=== PATIENT | male | born 1960 | race Hispanic/Latino ===

== ENCOUNTER → 2021-03-31 | Outpatient (CLI) | payer OTHER ==
[~2021-03-31] MED LIST: ASPI-1012 PO; HYDR-4457 PO; LISI1TAB32 PO; TAMS0.4C32 PO
[2021-03-31 11:49] LABS: INR 0.96 (0.85-1.15); PROTHROMBIN TIME 10.5 SEC (9.6-11.6)
[2021-03-31 12:10] LABS: APPEARANCE,URINE Clear (CLEAR); BILIRUBIN,URINE Negative (NEGATIVE); COLOR,URINE Yellow (YELLOW); GLUCOSE, URINE (UA) Negative (NEGATIVE); KETONES,URINE Negative (NEGATIVE); LEUKOCYTE ESTERASE ,URINE Negative (NEGATIVE); NITRATE,URINE Negative (NEGATIVE); OCCULT BLOOD,URINE Negative (NEGATIVE); PH,URINE 5.5 (5.0-8.0); PROTEIN,URINE Negative (NEGATIVE); UROBILINOGEN,URINE 0.2 mg/dL (0.2-1.0)
== END | disposition home or self-care (01) ==
LOC: DAH 10:00 → EDSTATUS 12:00
PROVIDERS: ATTEND Orthopaedic Surgery
DX: G89.29 Other chronic pain (principal); M17.12 Unilateral primary osteoarthritis, left knee; R26.89 Other abnormalities of gait and mobility; M23.8X2 Other internal derangements of left knee; M25.562 Pain in left knee; Z20.822 Contact with and (suspected) exposure to COVID-19; Z96.652 Presence of left artificial knee joint
CPT/HCPCS: 36415; 81003; 85610; 87088; 87635; 87641

== ENCOUNTER 2021-08-01 13:00 | Inpatient (IN) | payer OTHER ==
[~2021-08-01 13:00] MED LIST changes: -ASPI-1012 PO; -HYDR-4457 PO; -LISI1TAB32 PO
[2021-08-02 11:31] LABS: BASOPHILS % (AUTO) 0.5 % (0.0-5.0); LYMPHOCYTES % (AUTO) 24.4 % (21.0-51.0); MEAN CORPUSCULAR HEMOGLOBIN 30.7 pg (27.0-33.0); MEAN CORPUSCULAR HGB CONC 34.5 g/dL (32.0-36.0); MEAN CORPUSCULAR VOLUME 88.9 fL (79-99); MONOCYTES % (AUTO) 7.8 % (3.0-13.0); NEUTROPHILS % (AUTO) 63.7 % (40.0-77.0); PLATELET COUNT (AUTO) 256 K/uL (130-400); RED BLOOD CELL COUNT(AUTO) 5.51 MIL/uL (4.50-6.20); RED CELL DISTRIBUTION WIDTH 12.5 % (11.0-15.5); WHITE BLOOD COUNT (AUTO) 8.8 K/uL (4.8-10.8)
[2021-08-02 11:35] LABS: APPEARANCE,URINE Clear (CLEAR); BILIRUBIN,URINE Negative (NEGATIVE); COLOR,URINE Yellow (YELLOW); GLUCOSE, URINE (UA) Negative (NEGATIVE); KETONES,URINE Negative (NEGATIVE); LEUKOCYTE ESTERASE ,URINE Negative (NEGATIVE); NITRATE,URINE Negative (NEGATIVE); OCCULT BLOOD,URINE Negative (NEGATIVE); PROTEIN,URINE Negative (NEGATIVE); UROBILINOGEN,URINE 0.2 mg/dL (0.2-1.0)
[2021-08-02 11:44] LABS: POTASSIUM 3.5 mmol/L (3.5-5.1)
[2021-08-02 11:48] LABS: INR 1.02 (0.85-1.15); PROTHROMBIN TIME 11.1 SEC (9.6-11.6)
[2021-08-02 12:33] VITALS: BP 150/79
[2021-08-02] MEDS ORDERED: LISI10TA24 PO (14:46)
[2021-08-02] MEDS ORDERED: OXYB5TAB15 PO (14:46)
[2021-08-02] MEDS ORDERED: CHOL1CRY2 MC (14:46)
[2021-08-03] VITALS (24 sets, daily range): BP systolic 100–152; BP diastolic 42–88
[2021-08-03] MEDS ORDERED: CEFAZOLIN SODIUM 1 GM VIAL ONE ×2 (07:15→08:35)
[2021-08-03] MEDS ORDERED: LACTATED RINGERS 1000ML 1,000 ML IV ONE (07:15)
[2021-08-03] MEDS ORDERED: SUCCINYLCHOLINE CHLORIDE 20 MG/ML 10 ML VIAL ONE (08:04)
[2021-08-03] MEDS ORDERED: LIDOCAINE PF 100MG/5ML (2%) SYRINGE 5ML ONE (08:04)
[2021-08-03] MEDS ORDERED: SUCCINYLCHOLINE 200MG/10ML SYR ONE (08:04)
[2021-08-03] MEDS ORDERED: GLYCOPYRROLATE 1 MG/5 ML SYRINGE ONE (08:05)
[2021-08-03] MEDS ORDERED: NEOSTIGMINE 5MG/5ML SYR IV ONE (08:06)
[2021-08-03] MEDS ORDERED: MIDAZOLAM HCL 1 MG/ML 2ML VIAL ONE (08:06)
[2021-08-03] MEDS ORDERED: ROCURONIUM 10MG/1ML SYR 10 MG/ML ML ONE ×2 (08:06→10:13)
[2021-08-03] MEDS ORDERED: PROPOFOL 10 MG/ML 20ML VIAL IV ONE (08:06)
[2021-08-03] MEDS ORDERED: ROPIVACAINE 0.5% 5MG/ML 30ML IJ ONE (08:06)
[2021-08-03] MEDS ORDERED: FENTANYL CITRATE PF 50 MCG/1 ML 2ML VIAL ONE ×3 (08:20→10:41)
[2021-08-03] MEDS ORDERED: CEFAZOLIN SODIUM 2 GM VIAL IV ONE (08:20)
[2021-08-03] MEDS ORDERED: TRANEXAMIC ACID 1000MG/10ML ONE ×2 (08:35→11:42)
[2021-08-03] MEDS ORDERED: EPHEDRINE SULFATE 50 MG/ML AMPULE ONE (08:38)
[2021-08-03] MEDS ORDERED: ONDANSETRON 4MG INJ IVP PRN (10:30)
[2021-08-03] MEDS ORDERED: POTASSIUM CHLORIDE 20MEQ/100ML 100 ML IV PRN (10:30)
[2021-08-03] MEDS: 0.9%NACL 1000ML 1,000 ML IV SCH ×2 (10:30→22:38)
[2021-08-03] MEDS ORDERED: POTASSIUM CHLORIDE 10% ELIXIR 20 MEQ/15 ML UDCUP PO PRN (10:30)
[2021-08-03] MEDS ORDERED: TRAMADOL HCL 50 MG TABLET PO PRN (10:30)
[2021-08-03] MEDS ORDERED: TEMAZEPAM 15 MG CAPSULE PO PRN (10:30)
[2021-08-03] MEDS ORDERED: LIDOCAINE HCL-MPF 1% 2ML VIAL IV PRN (10:30)
[2021-08-03] MEDS ORDERED: FERROUS FUMARATE 324 MG TABLET PO PRN (10:30)
[2021-08-03] MEDS ORDERED: CALCIUM CARB 500MG PO PRN (10:30)
[2021-08-03] MEDS: ACETAMINOPHEN 500 MG TABLET PO SCH ×2 (10:30→18:16)
[2021-08-03] MEDS ORDERED: OXYCODONE HCL 5 MG TAB PO PRN (10:30)
[2021-08-03] MEDS ORDERED: DiphenhydrAMINE HCL 50 MG/ML VIAL IVP PRN (10:30)
[2021-08-03] MEDS ORDERED: MEPERIDINE-PF 25 MG/ML SYG ONE ×3 (10:57→11:50)
[2021-08-03] MEDS: KETOROLAC 15MG/ML VIAL (15MG/ML) IV PRN (13:31)
[2021-08-03] MEDS: OXYCODONE HCL 5 MG TAB PO PRN ×2 (15:58→20:30)
[2021-08-03] MEDS: CEFAZOLIN SODIUM 1 GM VIAL IVP SCH (15:58)
[2021-08-03] MEDS: PREGABALIN 25 MG CAP PO SCH (20:27)
[2021-08-03] MEDS: ASPIRIN 81 MG EC TAB PO SCH (20:27)
[2021-08-03] MEDS: FAMOTIDINE 20MG TAB PO SCH (20:27)
[2021-08-03] MEDS: CELECOXIB 200 MG CAP PO SCH (20:27)
[2021-08-03] MEDS ORDERED: KETOROLAC 30MG VIAL (30MG/ML) ONE (22:32)
[2021-08-04] VITALS: BP 134/69
[2021-08-04] MEDS: CEFAZOLIN SODIUM 1 GM VIAL IVP SCH (00:15)
[2021-08-04] MEDS: ACETAMINOPHEN 500 MG TABLET PO SCH ×3 (02:33→17:55)
[2021-08-04] MEDS: OXYCODONE HCL 5 MG TAB PO PRN ×3 (03:11→20:06)
[2021-08-04] MEDS: 0.9%NACL 1000ML 1,000 ML IV SCH (03:48)
[2021-08-04 03:55] VITALS: BP 121/66
[2021-08-04 05:49] LABS: HEMATOCRIT 39.4 % (42-54); MEAN CORPUSCULAR HEMOGLOBIN 30.6 pg (27.0-33.0); RED BLOOD CELL COUNT(AUTO) 4.38 MIL/uL (4.50-6.20); RED CELL DISTRIBUTION WIDTH 12.5 % (11.0-15.5); WHITE BLOOD COUNT (AUTO) 7.8 K/uL (4.8-10.8)
[2021-08-04] MEDS ORDERED: KETOROLAC 30MG VIAL (30MG/ML) ONE (05:49)
[2021-08-04 05:55] LABS: CREATININE 1.2 mg/dL (0.5-1.5); POTASSIUM 3.4 mmol/L (3.5-5.1)
[2021-08-04] MEDS: KCL 20 MEQ ERTAB PO PRN ×2 (06:25→12:40)
[2021-08-04 07:30] VITALS: BP 130/64
[2021-08-04] MEDS: **HM** VIT D3 25MCG PO SCH (09:00)
[2021-08-04] MEDS: TAMSULOSIN HCL 0.4 MG CAP.ER.24H PO SCH ×2 (09:00→09:36)
[2021-08-04] MEDS: CELECOXIB 200 MG CAP PO SCH ×2 (09:34→20:06)
[2021-08-04] MEDS: LISINOPRIL 10 MG TABLET PO SCH (09:35)
[2021-08-04] MEDS: OXYBUTYNIN CHLORIDE 5 MG TABLET PO SCH (09:36)
[2021-08-04] MEDS: FAMOTIDINE 20MG TAB PO SCH ×2 (09:36→20:05)
[2021-08-04] MEDS: POLYETHYLENE GLYCOL 3350 17 GM POWD.PACK PO SCH (09:36)
[2021-08-04] MEDS: PREGABALIN 25 MG CAP PO SCH ×2 (09:36→20:05)
[2021-08-04] MEDS: ASPIRIN 81 MG EC TAB PO SCH ×2 (09:37→20:06)
[2021-08-04] MEDS: KETOROLAC 15MG/ML VIAL (15MG/ML) IV PRN ×2 (09:39→18:07)
[2021-08-04 11:00] VITALS: BP 137/79
[2021-08-04 16:00] VITALS: BP 137/98
[2021-08-04 20:00] VITALS: BP 131/59
[2021-08-05] VITALS: BP 118/82
[2021-08-05] MEDS: KETOROLAC 15MG/ML VIAL (15MG/ML) IV PRN ×3 (00:48→13:49)
[2021-08-05] MEDS: ACETAMINOPHEN 500 MG TABLET PO SCH ×2 (02:33→08:21)
[2021-08-05] MEDS: OXYCODONE HCL 5 MG TAB PO PRN ×2 (03:51→08:18)
[2021-08-05 04:00] VITALS: BP 125/70
[2021-08-05 07:32] VITALS: BP 139/79
[2021-08-05] MEDS: FAMOTIDINE 20MG TAB PO SCH (08:18)
[2021-08-05] MEDS: OXYBUTYNIN CHLORIDE 5 MG TABLET PO SCH (08:19)
[2021-08-05] MEDS: TAMSULOSIN HCL 0.4 MG CAP.ER.24H PO SCH ×2 (08:19→08:20)
[2021-08-05] MEDS: PREGABALIN 25 MG CAP PO SCH (08:19)
[2021-08-05] MEDS: **HM** VIT D3 25MCG PO SCH (08:19)
[2021-08-05] MEDS: POLYETHYLENE GLYCOL 3350 17 GM POWD.PACK PO SCH (08:19)
[2021-08-05] MEDS: CELECOXIB 200 MG CAP PO SCH (08:19)
[2021-08-05] MEDS: ASPIRIN 81 MG EC TAB PO SCH (08:19)
[2021-08-05] MEDS: LISINOPRIL 10 MG TABLET PO SCH (08:19)
[2021-08-05 10:48] VITALS: BP 160/84
[2021-08-05] MEDS ORDERED: HYDR-4060 PO (16:14)
[2021-08-05] MEDS ORDERED: AEC81 PO ×2 (16:14→16:20)
[2021-08-05 16:45] VITALS: BP 141/68
[2021-08-06] MEDS ORDERED: BISACODYL 10 MG SUPP.RECT RC PRN (10:30)
== END 2021-08-05 18:34 | disposition home health service (06) | DRG 470 ==
LOC: DAHIP 08-03 06:32 → 4BH 08-03 12:09 → EDSTATUS 08-03 13:00
PROVIDERS: ADMIT Orthopaedic Surgery; ATTEND Orthopaedic Surgery
PROC: 0SRD0J9 Replacement of Left Knee Joint with Synthetic Substitute, Cemented, Open Approach (ICD-10-PCS; principal; 2021-08-03 08:00)
DX: M17.12 Unilateral primary osteoarthritis, left knee (principal); D64.9 Anemia, unspecified; I10 Essential (primary) hypertension; Z20.822 Contact with and (suspected) exposure to COVID-19; N40.0 Benign prostatic hyperplasia without lower urinary tract symptoms; Z96.651 Presence of right artificial knee joint
CPT/HCPCS: 36415; 80048; 81003; 85025; 85027; 85610; 87088; 87635; 87641; 88305; 88311; 97039; G0378; J0330; J0690; J1885; J2001; J2175; J2250; J2704; J2710; J2795; J3010; J3490; J7120

== ENCOUNTER 2024-04-14 06:13 | Observation (INO) | payer OTHER ==
[2024-04-08 08:59] LABS: ADD UA MICROSCOPIC YES; APPEARANCE,URINE CLEAR (CLEAR); BILIRUBIN,URINE NEGATIVE (NEGATIVE); COLOR,URINE YELLOW (YELLOW); GLUCOSE, URINE (UA) NEGATIVE (NEGATIVE); KETONES,URINE NEGATIVE (NEGATIVE); LEUKOCYTE ESTERASE ,URINE NEGATIVE Leu/uL (NEGATIVE); NITRATE,URINE NEGATIVE (NEGATIVE); OCCULT BLOOD,URINE NEGATIVE (NEGATIVE); PROTEIN,URINE 20 mg/dL (NEGATIVE)
[2024-04-08 09:02] LABS: MUCUS,URINE RARE LPF (None Seen); SQUAMOUS EPITHELIAL CELL,UR RARE /HPF (0-2)
[2024-04-08 09:07] VITALS: BP 189/94; PULSE 84; RESP 19
[2024-04-08 09:11] LABS: BASOPHILS # (AUTO) 0.03 K/uL (0.00-0.20); BASOPHILS % (AUTO) 0.5 % (0.0-5.0); EOSINOPHILS # (AUTO) 0.09 K/uL (0.00-0.70); EOSINOPHILS % (AUTO) 1.5 % (0.0-8.0); HEMATOCRIT 38.7 % (42-54); IMMATURE GRANULOCYTE ABSOLUTE 0.03 K/uL (0-1); LYMPHOCYTES # (AUTO) 1.3 K/uL (1.0-4.8); LYMPHOCYTES % (AUTO) 22.1 % (21.0-51.0); MEAN CORPUSCULAR HEMOGLOBIN 24.5 pg (27.0-33.0); MEAN CORPUSCULAR VOLUME 76.5 fL (79-99); MONOCYTES # (AUTO) 0.5 K/uL (0.1-1.0); MONOCYTES % (AUTO) 7.6 % (3.0-13.0); NEUTROPHILS # (AUTO) 4.1 K/uL (1.8-7.7); NEUTROPHILS % (AUTO) 67.8 % (40.0-77.0); PLATELET COUNT (AUTO) 282 K/uL (130-400); RED BLOOD CELL COUNT(AUTO) 5.06 MIL/uL (4.50-6.20); RED CELL DISTRIBUTION WIDTH 15.2 % (11.0-15.5)
[~2024-04-14] VITALS: Ht 167.6 cm; Wt 103.1 kg
[2024-04-14] VITALS (27 sets, daily range): BP systolic 93–167; BP diastolic 51–79; PULSE 83–114; RESP 14–20; O2SAT 96
[~2024-04-14 06:13] MED LIST changes: +LISI1TAB49 PO; +NAPR-1023 PO; +OXYB5TAB20 PO
[2024-04-14] MEDS ORDERED: LIDOCAINE PF 100MG/5ML (2%) SYRINGE 5ML ONE (07:15)
[2024-04-14] MEDS ORDERED: PROPOFOL 10 MG/ML 20ML VIAL IV ONE (07:15)
[2024-04-14] MEDS ORDERED: ONDANSETRON 4MG INJ ONE (07:15)
[2024-04-14] MEDS ORDERED: GLYCOPYRROLATE 0.2 MG/ML 5 ML VIAL ONE (07:15)
[2024-04-14] MEDS ORDERED: MIDAZOLAM HCL 1 MG/ML 2ML VIAL ONE (07:15)
[2024-04-14] MEDS ORDERED: DEXAMETHASONE SOD PHOSPHATE 10MG/ML 1ML VIAL ONE (07:15)
[2024-04-14] MEDS ORDERED: NEOSTIGMINE METHYLSULFATE 1MG/ML IV ONE (07:15)
[2024-04-14] MEDS ORDERED: SUCCINYLCHOLINE CHLORIDE 20 MG/ML 10 ML VIAL ONE (07:15)
[2024-04-14] MEDS ORDERED: ROCURONIUM BROMIDE 10MG/1ML 5ML VL ONE ×2 (07:16→09:09)
[2024-04-14] MEDS ORDERED: FENTANYL CITRATE PF 50 MCG/1 ML 2ML VIAL ONE (07:16)
[2024-04-14] MEDS ORDERED: ROPivacaine 0.5% 5MG/ML 30ML ONE (07:18)
[2024-04-14] MEDS ORDERED: TRANEXAMIC ACID 1000MG/10ML ONE (08:59)
[2024-04-14] MEDS: ceFAZolin SODIUM 2 GM VIAL ONE (09:00)
[2024-04-14] MEDS: 0.9%NACL 1000ML 1,000 ML IV SCH (09:30)
[2024-04-14] MEDS ORDERED: KCL 20 MEQ ERTAB PO PRN (09:30)
[2024-04-14] MEDS ORDERED: CYCLOBENZAPRINE HCL 10 MG TABLET PO PRN (09:30)
[2024-04-14] MEDS ORDERED: TRAMADOL HCL 50 MG TABLET PO PRN (09:30)
[2024-04-14] MEDS ORDERED: CALCIUM CARB 500MG PO PRN (09:30)
[2024-04-14] MEDS ORDERED: POTASSIUM CHLORIDE 20MEQ/100ML 100 ML IV PRN (09:30)
[2024-04-14] MEDS ORDERED: DiphenhydrAMINE HCL 50 MG/ML VIAL IVP PRN (09:30)
[2024-04-14] MEDS ORDERED: POTASSIUM CHLORIDE 10% ELIXIR 20 MEQ/15 ML UDCUP PO PRN (09:30)
[2024-04-14] MEDS ORDERED: FE FUMARATE/FA/MV, MIN COMB#15 1 TAB PO PRN (09:30)
[2024-04-14] MEDS: ceFAZolin SODIUM 2 GM VIAL IVPB SCH (09:30)
[2024-04-14] MEDS ORDERED: ONDANSETRON 4MG INJ IVP PRN (09:30)
[2024-04-14] MEDS ORDERED: PHENYLEPHRINE HCL 10 MG/ML 1ML VIAL IV ONE (09:33)
[2024-04-14] MEDS ORDERED: EPHEDRINE SULFATE 50 MG/ML AMPULE ONE ×2 (09:41→11:09)
[2024-04-14] MEDS ORDERED: OMEP20CA12 PO (10:27)
[2024-04-14] MEDS ORDERED: ACET-2743 PO (10:27)
[2024-04-14] MEDS ORDERED: CHOL100046 PO (10:27)
[2024-04-14] MEDS ORDERED: ALBU18HF7 IH (10:27)
[2024-04-14] MEDS: LACTATED RINGERS 1000ML 1,000 ML IV ONE (10:28)
[2024-04-14] MEDS: KETOROLAC 15MG/ML VIAL (15MG/ML) ONE (11:51)
[2024-04-14] MEDS: KETOROLAC 15MG/ML VIAL (15MG/ML) IV SCH (11:51)
[2024-04-14] MEDS: GABAPENTIN 100 MG CAPSULE PO SCH (14:26)
[2024-04-14] MEDS ORDERED: ALBUTEROL 0.083% 2.5 MG/3 ML INH IH PRN (16:30)
[2024-04-14] MEDS: DOCUSATE SODIUM 100 MG CAP PO SCH (21:03)
[2024-04-14] MEDS: HYDROCODONE/ACETAMINOPHEN 5/325 MG TAB PO PRN (23:43)
[2024-04-15 04:27] VITALS: BP 128/71; PULSE 90; RESP 18
[2024-04-15 05:42] LABS: HEMATOCRIT 32.2 % (42-54); MEAN CORPUSCULAR HEMOGLOBIN 24.2 pg (27.0-33.0); MEAN CORPUSCULAR HGB CONC 31.4 g/dL (32.0-36.0); RED BLOOD CELL COUNT(AUTO) 4.18 MIL/uL (4.50-6.20); RED CELL DISTRIBUTION WIDTH 15.5 % (11.0-15.5); WHITE BLOOD COUNT (AUTO) 12.2 K/uL (4.8-10.8)
[2024-04-15 06:23] LABS: CREATININE 1.2 mg/dL (0.5-1.3); POTASSIUM 3.8 mmol/L (3.5-5.1)
[2024-04-15 08:00] VITALS: BP_SYST 139; BP_SYST 152; BP_DIAS 76; BP_DIAS 80; PULSE 75; PULSE 84; RESP 18
[2024-04-15] MEDS: ASPIRIN 325MG TAB PO SCH (08:37)
[2024-04-15] MEDS: PANTOPRAZOLE 40 MG TAB DR PO SCH (08:37)
[2024-04-15] MEDS: POLYETHYLENE GLYCOL 3350 17 GM POWD.PACK PO SCH (08:38)
[2024-04-15] MEDS: TAMSULOSIN HCL 0.4 MG CAP.ER.24H PO SCH (08:38)
[2024-04-15] MEDS: HYDROCHLOROTHIAZIDE PO SCH (08:40)
[2024-04-15] MEDS: Cholecalciferol (Vitamin D3) (Vitamin D3) 25 MCG PO SCH (08:40)
[2024-04-15] MEDS: LISINOPRIL PO SCH (08:40)
[2024-04-15 09:00] VITALS: O2SAT 96
[2024-04-15] MEDS: KETOROLAC 15MG/ML VIAL (15MG/ML) IV PRN (10:44)
[2024-04-15 12:00] VITALS: BP 123/71; PULSE 83; RESP 18
[2024-04-15] MEDS ORDERED: DOCU-116 PO (13:06)
[2024-04-15] MEDS ORDERED: GABA100C PO (13:06)
[2024-04-15] MEDS ORDERED: HYDR-4060 PO (13:06)
[2024-04-15] MEDS ORDERED: CYCL-309 PO (13:06)
[2024-04-17] MEDS ORDERED: BisaCODYL 10 MG SUPP.RECT RC PRN (09:30)
== END 2024-04-15 14:28 | disposition home or self-care (01) ==
LOC: DAH 06:13 → DAHIP 06:14 → 4BH 12:30
PROVIDERS: ADMIT Student in an Organized Health Care Education/Training Program; ATTEND Student in an Organized Health Care Education/Training Program
DX: M75.122 Complete rotator cuff tear or rupture of left shoulder, not specified as traumatic (principal); G89.18 Other acute postprocedural pain; K21.9 Gastro-esophageal reflux disease without esophagitis; I10 Essential (primary) hypertension; J44.9 Chronic obstructive pulmonary disease, unspecified; D62 Acute posthemorrhagic anemia; Z79.899 Other long term (current) drug therapy
CPT/HCPCS: 85025; 87086; 84134; 86140; 81001; 36415 ×2; 93005; 87641; 64415; 23472; 96365; 96375; 73020; 73030; 97161; 97116 ×2; 96376; 80048; 85027; 97530 ×2; G0378 ×28; A4663; J7120 ×2; A4565; C1776; J3010; J3490 ×6; J1100; J0330; J2001; J2250; J2704; J2405; J2710; J2795; J1885 ×4; J2371; J0690 ×2; G0168; A4930; A4649; A6254; A5120; A4215; A4223 ×2; A4213; A4222; A4221; A4216; A4600